=== PATIENT | female | born 1945 | race Caucasian/White ===

== ENCOUNTER 2017-09-12 15:26 | Emergency (ER) | payer OTHER ==
[~2017-09-12] VITALS: Ht 157.5 cm; Wt 90.0 kg
[~2017-09-12 15:26] MED LIST: ACET325T14 PO; ATOR-2 PO; CHLO25TA PO; CHOL200040 PO; GABA300C10 PO; METF500T4 PO; SERT50TA5 PO; WARF3TAB7 PO
[2017-09-12] MEDS ORDERED: ASPIRIN 81 MG TABLET CHEW ONE ×2 (15:41→15:46)
[2017-09-12] MEDS ORDERED: NITROGLYCERIN SINGLE TAB 0.4 MG SL ONE (15:41)
[2017-09-12] MEDS ORDERED: ONDANSETRON 2MG/ML, 2ML IVPush ONE (16:00)
[2017-09-12] MEDS ORDERED: ASPIRIN 81 MG TABLET CHEW PO ONE (16:00)
[2017-09-12] MEDS ORDERED: SODIUM CHLORIDE FLUSH 10ML SYR IVF ONE (16:00)
[2017-09-12] MEDS ORDERED: NITROGLYCERIN SINGLE TAB 0.4 MG SL PRN (16:00)
[2017-09-12] MEDS ORDERED: METO50TA82 PO (16:33)
[2017-09-12 16:40] LABS: HEMATOCRIT 39.5 % (34.6-47.8); HEMOGLOBIN 13.5 g/dL (11.7-16.4); WHITE BLOOD COUNT 11.1 x10^3/uL (3.4-10)
[2017-09-12 16:47] LABS: BLOOD UREA NITROGEN 12 mg/dL (7-18)
[2017-09-12 16:58] LABS: IS PT STATUS REG ER OR PRE ER? YES
[2017-09-12 18:22] VITALS: BP 108/60
== END 2017-09-12 18:24 | disposition home or self-care (01) ==
LOC: ED 15:49
DX: I48.0 Paroxysmal atrial fibrillation (principal); Z88.2 Allergy status to sulfonamides; I10 Essential (primary) hypertension; E11.9 Type 2 diabetes mellitus without complications
CPT/HCPCS: 36415; 71010; 80048; 82040; 83880; 84484; 85025; 85610; 93005; 99291